=== PATIENT | female | born 1950 | race Two or more races ===

== ENCOUNTER 2018-04-05 18:41 | Emergency (ER) | payer OTHER ==
[~2018-04-05] VITALS: Ht 149.9 cm; Wt 83.0 kg
[~2018-04-05 18:41] MED LIST: ATENOLOL50 MG; DILTIA XT240 MG; FLONASE16 G1 NS; MUCINEX600 MG PO; SYNTHROID88 MCG
[2018-04-06] MEDS ORDERED: TENORMIN100 MG (14:31)
[2018-04-06] MEDS ORDERED: SENNA8.6 MG (14:32)
[2018-04-06] MEDS ORDERED: OMEPRAZOLE40 MG (14:34)
[2018-04-06] MEDS ORDERED: ZANTAC300 MG (14:34)
[2018-04-06] MEDS ORDERED: SULFAMETHOXAZOLE (14:34)
[2018-04-06] MEDS ORDERED: IBUPROFEN800 MG (14:35)
== END 2018-04-05 23:58 | disposition home or self-care (01) ==
LOC: ER 18:41
DX: N39.0 Urinary tract infection, site not specified (principal)

== ENCOUNTER 2018-04-06 14:11 | Emergency (ER) | payer OTHER ==
[~2018-04-06] VITALS: Ht 149.9 cm; Wt 83.0 kg
[2018-04-06] MEDS ORDERED: TENORMIN100 MG (14:31)
[2018-04-06] MEDS ORDERED: SENNA8.6 MG (14:32)
[2018-04-06] MEDS ORDERED: SULFAMETHOXAZOLE (14:34)
[2018-04-06] MEDS ORDERED: ZANTAC300 MG (14:34)
[2018-04-06] MEDS ORDERED: OMEPRAZOLE40 MG (14:34)
[2018-04-06] MEDS ORDERED: IBUPROFEN800 MG (14:35)
== END 2018-04-07 01:20 | disposition home or self-care (01) ==
LOC: ER 14:11
DX: K52.9 Noninfective gastroenteritis and colitis, unspecified (principal); N20.0 Calculus of kidney

== ENCOUNTER 2018-04-09 09:07 | Outpatient (CLI) | payer OTHER ==
[~2018-04-09 09:07] MED LIST changes: +IBUPROFEN800 MG; +OMEPRAZOLE40 MG; +SENNA8.6 MG; +SULFAMETHOXAZOLE; +TENORMIN100 MG; +ZANTAC300 MG
== END 2018-04-09 09:25 | disposition home or self-care (01) ==
LOC: LAB 09:07 → RAD 09:07 → LAB 09:25
DX: R10.9 Unspecified abdominal pain (principal); N39.0 Urinary tract infection, site not specified; R82.8 Abnormal findings on cytological and histological examination of urine

== ENCOUNTER → 2018-04-17 | Emergency (ER) | payer OTHER ==
[~2018-04-17] VITALS: Ht 162.6 cm; Wt 77.1 kg
== END | disposition left against medical advice (07) ==
LOC: ER 08:55
DX: J44.9 Chronic obstructive pulmonary disease, unspecified (principal); J98.01 Acute bronchospasm; R05 Cough; R53.81 Other malaise